=== PATIENT | female | born 1945 | race Asian ===

== ENCOUNTER → 2017-12-06 09:28 | Outpatient (CLI) | payer MEDICARE, OTHER, SELFPAY ==
--- NOTE | 2017-12-06 | DI.US.S_ITS ---
PROCEDURE: US RENAL COMPLETE INDICATIONS: CYST TECHNIQUE: Real-time scanning was performed of the kidneys and bladder, with image documentation. COMPARISON: [facility], CT, ABDOMEN W&WO CONTRAST, 08/11/2015, 11:01. [facility], US, RENAL COMPLETE, 04/02/2017, 10:43. [facility], US, RENAL COMPLETE, 10/17/2016, 13:07. [facility], US, RENAL COMPLETE, 02/21/2016, 11:40. FINDINGS: Kidneys: Kidneys are normal in size. Right kidney measures 11.1 cm long; left kidney measures 10.8 cm long. Right renal cortical thickness is 1.8 cm; left renal cortical thickness is 1.6 cm. Renal cortical echotexture is normal. No hydronephrosis or nephrolithiasis. No suspicious solid mass lesions. There are right renal cortical cysts, measuring 1.6 x 1.9 x 1.8 cm inferiorly at the posterior cortex of the right kidney, and measuring 10.9 x 10.7 x 2.3 cm at the medial cortex of the right kidney. No left renal cortical cysts are found, there is a 6 mm nonobstructive anterior inferior renal cortical calculus without associated renal collecting system dilatation focally Bladder: Pre-void bladder volume is 200 mL. Post-void residual is 0 mL. Pre-void images demonstrate no intraluminal masses or stones. On pre-void images, bilateral ureteral jets are noted with color Doppler interrogation. (Of note, ureteral jets may not be detectable in up to 25% of cases due to insufficient differences in specific gravity between ureteral and bladder urine). Miscellaneous: No free pelvic fluid. IMPRESSION: Right renal cortical cysts, largest of which is medial and measures up to 12.3 cm without internal hemorrhage or debris. 6 mm nonobstructive calculus anterior-inferior cortex of the right kidney. No hydronephrosis bilaterally. Dictated by: Jonah Florez M.D. on 12/06/2017 at 10:46 Approved by: Jonah Florez M.D. on 12/06/2017 at 10:55
== END ==
PROVIDERS: PCP Physician Assistant Medical; Visit Provider Urology
DX: N28.1 Cyst of kidney, acquired (principal)
CPT/HCPCS: 76770

== ENCOUNTER → 2018-06-10 11:51 | Outpatient (CLI) | payer MEDICARE, OTHER, SELFPAY ==
--- NOTE | 2018-06-10 | DI.US.S_ITS ---
PROCEDURE: US RENAL COMPLETE INDICATIONS: RENAL CYST TECHNIQUE: Real-time scanning was performed of the kidneys and bladder, with image documentation. COMPARISON: [facility], CR, XR LUMBAR SPINE 2 OR 3 VIEWS, 03/08/2017, 13:51. [facility], CT, ABDOMEN W&WO CONTRAST, 08/11/2015, 11:01. [facility], US, US RENAL COMPLETE, 12/06/2017, 10:02. FINDINGS: Kidneys: Kidneys are normal in size. Right kidney measures 13.7 cm long; left kidney measures 11.0 cm long. Right renal cortical thickness is 1.6 cm; left renal cortical thickness is 1.4 cm. Renal cortical echotexture is normal. No hydronephrosis. 12.3 cm right renal cyst redemonstrated and there is a smaller inferior posterior cortical cyst measuring 19 mm. 6 mm nonobstructing right renal stone. Bladder: Pre-void bladder volume is 161 mL. Post-void residual is not evaluated. Pre-void images demonstrate no intraluminal masses or stones. On pre-void images, neither ureteral jets are noted with color Doppler interrogation. (Of note, ureteral jets may not be detectable in up to 25% of cases due to insufficient differences in specific gravity between ureteral and bladder urine). Calcification adjacent to the posterior aspect of the bladder along the left side which could represent a ureteral stone or possibly a pelvic phlebolith. Miscellaneous: No free pelvic fluid. IMPRESSION: 1. No significant change in 12.3 cm right renal cyst. 2. 6 mm right renal nonobstructing calcification. 3. 9 mm calcification along the left lateral aspect of the posterior bladder which could represent either a phlebolith or possibly a ureteral stone. Recommend clinical correlation and if indicated CT KUB could be performed. Dictated by: Liban BERNAL Interpreted: Evie Colunga MD on 06/10/2018 at 13:44 Approved by: Evei Colunga M.D. on 06/10/2018 at 16:45
== END ==
PROVIDERS: PCP Physician Assistant Medical; Visit Provider Urology
DX: N28.1 Cyst of kidney, acquired (principal); N20.0 Calculus of kidney; N32.89 Other specified disorders of bladder
CPT/HCPCS: 76770

== ENCOUNTER → 2018-11-28 09:26 | Outpatient (CLI) | payer MEDICARE, OTHER, SELFPAY ==
--- NOTE | 2018-11-28 09:40 | DI.CT.S_ITS ---
PROCEDURE: CT ABDOMEN PELVIS WO CON INDICATIONS: RENAL CYST TECHNIQUE: Noncontrast 5 mm thick sections acquired from the diaphragms to the symphysis. 5 mm coronal and sagittal reformats were then performed. For radiation dose reduction, the following was used: automated exposure control, adjustment of mA and/or kV according to patient size. COMPARISON: [facility], , US RENAL COMPLETE, 06/10/2018, 12:28. FINDINGS: Image quality: Excellent. ABDOMEN: Lung bases: Lung bases are clear. Heart size is normal. Solid organs: Liver is normal in size. Gallbladder is difficult to visualize but is likely present and partially compressed by the large cyst projecting from the right renal cortex anteriorly and superiorly.. Pancreas is normal in contours. Spleen is normal in size. No adrenal nodules. Kidneys are asymmetric in size, larger on the right than the left, without hydronephrosis or nephrolithiasis but with a large right renal cortical exophytic cyst measuring up to 12.3 cm AP, 10.4 cm transverse and 11.9 cm craniocaudad. This represents the cystic structure seen by ultrasound 06/10/18. Several additional small renal cortical cysts appear present bilaterally, one of which contains a small amount of faint calcification at the lateral cortex of the junction of the middle and lower thirds of the right kidney. Peritoneum and bowel: Unenhanced bowel loops demonstrate normal wall thickness and caliber. No free fluid or air. Nodes and vessels: No retroperitoneal or mesenteric adenopathy by size criteria. Aorta and inferior vena cava are normal in caliber. Miscellaneous: No ventral hernias. PELVIS: Genitourinary: Bladder wall thickness is normal. Miscellaneous: No inguinal hernias or adenopathy. Bones: No suspicious bony lesions. No vertebral body compression fractures. IMPRESSION: Large right renal cortical exophytic cyst previously present, simple in appearance by CT scanning, and measuring up to 12.3 cm in maximal dimension. Several additional right renal cortical cysts are seen more inferiorly, one of which contains a slight amount of dystrophic calcification along its lateral border at the lower third of the right kidney. Dictated by: Joanh Florez M.D. on 11/28/2018 at 12:57 Approved by: Jonah Florez M.D. on 11/28/2018 at 13:01
== END ==
PROVIDERS: PCP Physician Assistant Medical; Visit Provider Urology
DX: N28.1 Cyst of kidney, acquired (principal)
CPT/HCPCS: 74176

== ENCOUNTER → 2018-12-25 12:28 | Outpatient (CLI) | payer MEDICARE, OTHER, SELFPAY ==
--- NOTE | 2018-12-25 12:34 | DI.CT.S_ITS ---
PROCEDURE: CT LUMBAR SPINE WO CON INDICATIONS: Intervertebral disc disorders with radiculopathy TECHNIQUE: Noncontrast 3 mm thick sections acquired from the T12 level to the sacrum. Sagittal and coronal reformats were constructed. For radiation dose reduction, the following was used: automated exposure control. COMPARISON: [facility], , L-SPINE WITHOUT CONTRAST, 02/03/2016, 10:10. FINDINGS: Image quality: Excellent. Bones: Posterior fixation and discectomies present at L5-S1. No findings to suggest hardware loosening or failure. Patient is status post L5-S1 laminectomy. There is normal bony alignment. No acute vertebral body compression fractures. No suspicious lytic or blastic bony lesions. Central spinal caliber is of normal overall caliber. No pars defects. T12-L1: Normal appearance. L1-L2: Mild disc desiccation. No canal stenosis. No foraminal stenosis. No neural foraminal narrowing. L2-L3: Mild disc bulge. Mild facet and ligamentum flavum hypertrophy. No canal stenosis. No neural foraminal narrowing. L3-L4: Mild disc bulge and disc desiccation and height loss. Moderate facet and ligamentum flavum hypertrophy. Moderate canal stenosis. No neural foraminal narrowing. L4-L5: Severe disc desiccation and height loss. Vacuum disc phenomenon. Severe facet and ligamentum flavum hypertrophy. Mild canal stenosis. No neural foraminal stenosis. L5-S1: Posterior fusion and discectomy. No canal stenosis. Moderate right foraminal stenosis. Mild left foraminal stenosis. Soft tissues: No retroperitoneal masses or hematomas. Visualized aorta is normal in caliber. There is a large low density cystic lesion within the upper pole of the right kidney which is incompletely characterized on this limited view. IMPRESSION: 1. Postoperative changes at L5-S1. No findings to suggest hardware failure or fracture. No abnormal fluid collections. 2. Moderate canal stenosis at L3-4 and mild canal stenosis at L4-5. 3. Moderate right neuroforaminal stenosis at L5-S1. 4. Large right renal cyst which is incompletely characterized on this limited view. Dictated by: Claire Walter M.D. on 12/25/2018 at 13:54 Approved by: Claire Walter M.D. on 12/25/2018 at 14:00
== END ==
PROVIDERS: PCP Physician Assistant Medical; Visit Provider Orthopaedic Surgery Orthopaedic Surgery of the Spine
DX: M51.16 Intervertebral disc disorders with radiculopathy, lumbar region (principal); Z98.1 Arthrodesis status; M48.061 Spinal stenosis, lumbar region without neurogenic claudication; M48.07 Spinal stenosis, lumbosacral region; Q61.01 Congenital single renal cyst
CPT/HCPCS: 72131

== ENCOUNTER → 2020-04-19 16:56 | Outpatient (CLI) | payer MEDICARE, OTHER, SELFPAY ==
--- NOTE | 2020-04-19 16:58 | DI.MG.S_ITS ---
BILATERAL DIGITAL SCREENING MAMMOGRAM 3D/2D WITH CAD: 04/19/2020 CLINICAL: Routine screening. Comparison is made to exams dated: 04/15/2019 mammogram and 03/18/2018 mammogram - outside location. The tissue of both breasts is heterogeneously dense. This may lower the sensitivity of mammography. Current study was also evaluated with a Computer Aided Detection (CAD) system. There is a possible developing calcification in the left breast at 5 o'clock anterior depth. No other significant masses, calcifications, or other findings are seen in either breast. IMPRESSION: INCOMPLETE: NEEDS ADDITIONAL IMAGING EVALUATION The possible developing calcification in the left breast is indeterminate. Additional views are recommended. This exam was interpreted at Station ID: [id number]. NOTE: For mammograms, a report in lay terms will be sent to the patient. Approximately 15% of breast malignancies will not be visualized mammographically. In the management of a palpable breast mass, a negative mammogram must not discourage biopsy of a clinically suspicious lesion. Electronically Signed By: Huang Mark M.D. [facility] [place]:04/20/2020 09:20:53 letter sent: Additional Imaging Needed ACR BI-RADS Category 0: Incomplete 3340F
== END ==
PROVIDERS: PCP Physician Assistant Medical; Referring Provider Physician Assistant Medical; Visit Provider Physician Assistant Medical
DX: Z12.31 Encounter for screening mammogram for malignant neoplasm of breast (principal)
CPT/HCPCS: 77063; 77067

== ENCOUNTER → 2020-05-13 14:47 | Outpatient (CLI) | payer MEDICARE, OTHER, SELFPAY ==
--- NOTE | 2020-05-13 | DI.MG.S_ITS ---
UNILATERAL LEFT DIGITAL DIAGNOSTIC MAMMOGRAM 3D/2D WITH ADDITIONAL VIEWS: 05/13/2020 CLINICAL: Additional evaluation requested from prior study. Comparison is made to exams dated: 04/19/2020 mammogram - [facility], 04/15/2019 mammogram, and 03/18/2018 mammogram - outside location. The tissue of left breast is heterogeneously dense. This may lower the sensitivity of mammography. The previously described possible developing calcifications in the left breast at 5 o'clock anterior depth is not reproduced and presumably represented pseudocalcification artifact. No other significant masses or calcifications are seen in the breast. IMPRESSION: BENIGN There is no mammographic evidence of malignancy. A 1 year screening mammogram is recommended. Findings and recommendations were conveyed to the patient during today's evaluation. This exam was interpreted at Station ID: [id number]. NOTE: For mammograms, a report in lay terms will be sent to the patient. Approximately 15% of breast malignancies will not be visualized mammographically. In the management of a palpable breast mass, a negative mammogram must not discourage biopsy of a clinically suspicious lesion. Electronically Signed By: Ted singh/:05/13/2020 15:29:41 letter sent: Normal Exam ACR BI-RADS Category 2: Benign Finding(s) 3342F
== END ==
PROVIDERS: PCP Physician Assistant Medical; Referring Provider Physician Assistant Medical; Visit Provider Physician Assistant Medical
DX: R92.8 Other abnormal and inconclusive findings on diagnostic imaging of breast (principal)
CPT/HCPCS: 77065; G0279

== ENCOUNTER → 2020-07-12 11:18 | Outpatient (CLI) | payer MEDICARE, OTHER, SELFPAY ==
[2020-07-12 13:00] LABS: COVID19 -Nasal RAPID Negative (Negative)
== END ==
PROVIDERS: PCP Physician Assistant Medical; Visit Provider Physician Assistant
DX: Z01.812 Encounter for preprocedural laboratory examination (principal); Z20.822 Contact with and (suspected) exposure to COVID-19
CPT/HCPCS: 87635; C9803

== ENCOUNTER 2021-01-17 07:23 | Emergency (ER) | payer MEDICARE, OTHER, SELFPAY ==
[2021-01-17] VITALS (10 sets, daily range): BP systolic 117–154; BP diastolic 75–87; PULSE 60–79; RESP 11–36; TEMP 37.1; O2SAT 92–100; BMI 18.8
--- NOTE | 2021-01-17 07:41 | ED.GENADULT ---
HPI - General Adult General Chief complaint: Shortness of Breath/Dyspnea Stated complaint: SOB, LOW ABD PAIN, HEADACHE Time Seen by Provider: 01/17/21 07:27 Source: patient Mode of arrival: Wheelchair Limitations: no limitations History of Present Illness HPI narrative: 75-year-old female who is here with her for evaluation of shortness of breath, abdominal pain and headache. There is somewhat of a by language barrier. Her is at bedside and is providing some of the HPI. It appears that the patient has had abdominal pain for several weeks/months however last evening the abdominal pain got worse and she developed shortness of breath and also headache. She has had her appendix removed. She does have a history of high blood pressure and high cholesterol. The abdominal pain that she is having is the same pain that she has been having for weeks/months but just worse. She denies chest pain. Has not tried anything for symptoms prior to arrival. Related Data Home Medications Medication Instructions Recorded Confirmed [STOOL SOFTENER] QDAY #0 07/19/16 brimonidine 0.2 % eye drops 1 drp OU BID #0 07/19/16 losartan 25 mg tablet 25 mg PO QDAY #0 07/19/16 Previous Rx's Medication Instructions Recorded oxycodone 5 mg tablet 5 mg PO Q4HP PRN #90 tab 08/01/16 hydroxyzine pamoate 25 mg capsule 25 - 50 mg PO Q4HP PRN #30 cap 08/03/16 (Vistaril) Allergies Allergy/AdvReac Type Severity Reaction Status Date / Time morphine [MORPHINE] Allergy Unknown RASH; Verified 01/17/21 09:09 ITCHING Review of Systems Constitutional Comments: No fevers Eyes Eyes: Reports system reviewed and no additional complaints, except as documented Cardiovascular Cardiovascular: Reports as per HPI Respiratory Respiratory: Reports as per HPI Gastrointestinal Gastrointestinal: Reports system reviewed and no additional complaints, except as documented and Reports abdominal pain Genitourinary Genitourinary: Reports system reviewed and no additional complaints, except as documented Musculoskeletal Musculoskeletal: Reports system reviewed and no additional complaints, except as documented Integumentary/Breasts Skin/Breast: Reports system reviewed and no additional complaints, except as documented Neurologic Neurologic: Reports system reviewed and no additional complaints, except as documented Endocrine Endocrine: Reports system reviewed and no additional complaints, except as documented Hematologic/Lymphatic On Anticoagulants: No Allergic/Immunologic Allergic/Immunologic: Reports system reviewed and no additional complaints, except as documented Patient History Medical History Hyperlipidemia Hypertension Surgical History Hx of appendectomy Social History Smoking Status: Never smoker Smoking Status: Never smoker alcohol intake frequency: 0-2 drinks per day Substance Use Type: does not use Exam Initial Vital Signs Initial Vital Signs: Vital Signs Temperature 98.8 F 01/17/21 07:32 Pulse Rate 79 01/17/21 07:32 Respiratory Rate 36 H 01/17/21 07:32 Blood Pressure 154/87 H 01/17/21 07:32 Pulse Oximetry 99 01/17/21 07:32 Const General: cooperative and other (Uncomfortable) HENMT Head: normal to inspection and normocephalic Eyes General: appearance normal, both eyes and all related structures Resp Effort & Inspection: not labored and tachypneic Auscultation: clear to auscultation bilaterally Cardio Rate: regular rate Rhythm: regular rhythm GI Inspection: normal to inspection and non-distended Palpation: No guarding and tender (Diffuse tenderness) Back/Spine/Pelvis Back: normal to inspection Skin General: no rashes or lesions noted Neuro General: patient alert, patient awake and moves all extremities Extrem General: normal to inspection and capillary refill normal Psych Appearance: grossly normal and well kempt Course Orders Ordered: ED Orders 01/17/21 07:35 Complete Blood Count AUTO DIFF Stat Comprehensive Metabolic Panel Stat Lactate (Lactic Acid) Stat Lipase Stat Troponin & CK Cardiac Panel Stat 01/17/21 07:39 EKG-12 Lead Stat 01/17/21 08:03 CT angio chest abdomen pelvis Stat Discontinued Medications Hydromorphone HCl (Hydromorphone 0.5 Mg Inj) 0.5 mg IV NOW ONE Stop: 01/17/21 08:01 Last Admin: 01/17/21 09:10 Dose: 0.5 mg Documented by: MENG Sodium Chloride (Normal Saline 0.9%) 1,000 mls @ 1,000 mls/hr IV BOLUS ONE Stop: 01/17/21 08:26 Last Infusion: 01/17/21 09:57 Dose: 0 mls/hr Documented by: Admin: 01/17/21 07:48 Dose: 1,000 mls/hr Documented by: KAUSHIK Vital Signs Vital signs: Vital Signs - 8 hr 01/17/21 07:32 01/17/21 08:26 01/17/21 08:30 Temperature 98.8 F Pulse Rate 79 71 64 Respiratory Rate 36 H 24 Blood Pressure 154/87 H 129/83 117/75 Pulse Oximetry 99 98 100 01/17/21 09:00 01/17/21 09:30 01/17/21 10:00 Temperature Pulse Rate 62 62 65 Respiratory Rate 24 11 L Blood Pressure 137/79 140/79 Pulse Oximetry 99 99 99 Medical Decision Making Lab Data Lab results reviewed: Yes I reviewed the patient's lab results. Result diagrams: 01/17/21 07:35 01/17/21 07:35 Labs: Lab Results 01/17/21 01/17/21 01/17/21 Range/Units 07:35 07:35 07:35 WBC 5.8 (4.5-11.0) X10^3/uL RBC 4.87 (4.0-5.2) X10^6/uL Hgb 15.3 (12.0-16.0) g/dL Hct 45.3 (36-46) % MCV 93.0 (80-100) fL MCH 31.4 (26-34) PG MCHC 33.8 (30-36) % RDW 13.0 (11.6-14.8) % Plt Count 279 (150-400) X10^3/uL Neut % (Auto) 79.9 H (50-75) % Lymph % (Auto) 14.1 L (25-40) % Luce % (Auto) 4.6 (3-14) % Eos % (Auto) 0.1 L (2-4) % Baso % (Auto) 1.3 (0-2) % Neut # (Auto) 4600 (5295-9118) /uL Lymph # (Auto) 800 L (4913-8084) /uL Luce # (Auto) 300 (0-900) /uL Eos # (Auto) 0 (0-450) /uL Baso # (Auto) 100 (0-100) /uL Sodium 138 (137-145) mmol/L Potassium 3.7 (3.4-5.1) mmol/L Chloride 102 (98-107) mmol/L Carbon Dioxide 25 (22-32) mmol/L BUN 15 (7-17) mg/dL Creatinine 0.71 (0.52-1.04) mg/dL Estimated GFR > 60.0 (>60) mL/min BUN/Creatinine Ratio 21.1 (6-22) Glucose 130 H (80-110) mg/dL Lactate 3.1 H (0.7-2.1) mmol/L Calcium 10.4 H (8.4-10.2) mg/dL Total Bilirubin 1.7 H (0.2-1.3) mg/dL AST 28 (14-36) IU/L ALT 24 (<35) IU/L Alkaline Phosphatase 48 (38-126) U/L Total Creatine Kinase (30-135) U/L CK-MB (CK-2) CK-MB (CK-2) Rel Index Troponin I (0.01-0.034) ng/mL Total Protein 7.6 (6.3-8.2) g/dL Albumin 4.8 (3.5-5.0) g/dL Globulin 2.8 (1.7-4.1) g/dL Albumin/Globulin Ratio 1.7 (1.0-2.8) Lipase 210 (23-300) U/L 01/17/21 01/17/21 Range/Units 07:35 09:48 WBC (4.5-11.0) X10^3/uL RBC (4.0-5.2) X10^6/uL Hgb (12.0-16.0) g/dL Hct (36-46) % MCV (80-100) fL MCH (26-34) PG MCHC (30-36) % RDW (11.6-14.8) % Plt Count (150-400) X10^3/uL Neut % (Auto) (50-75) % Lymph % (Auto) (25-40) % Luce % (Auto) (3-14) % Eos % (Auto) (2-4) % Baso % (Auto) (0-2) % Neut # (Auto) (4819-7493) /uL Lymph # (Auto) (4816-8379) /uL Luce # (Auto) (0-900) /uL Eos # (Auto) (0-450) /uL Baso # (Auto) (0-100) /uL Sodium (137-145) mmol/L Potassium (3.4-5.1) mmol/L Chloride (98-107) mmol/L Carbon Dioxide (22-32) mmol/L BUN (7-17) mg/dL Creatinine (0.52-1.04) mg/dL Estimated GFR (>60) mL/min BUN/Creatinine Ratio (6-22) Glucose (80-110) mg/dL Lactate 0.7 (0.7-2.1) mmol/L Calcium (8.4-10.2) mg/dL Total Bilirubin (0.2-1.3) mg/dL AST (14-36) IU/L ALT (<35) IU/L Alkaline Phosphatase (38-126) U/L Total Creatine Kinase 55 (30-135) U/L CK-MB (CK-2) TNP CK-MB (CK-2) Rel Index TNP Troponin I < 0.012 (0.01-0.034) ng/mL Total Protein (6.3-8.2) g/dL Albumin (3.5-5.0) g/dL Globulin (1.7-4.1) g/dL Albumin/Globulin Ratio (1.0-2.8) Lipase (23-300) U/L Imaging Data CT scan - abdomen/pelvis: Radiologist's Impression: [address] Scan ReportSigned Patient: Nohemi Brandon [facility]#: [id number]: 8Acct:[id number]/Sex: 75 / FDate of Service: 01/17/21Loc: EDAccession Number: [id number] Procedure: CT angio chest abdomen pelvis Ordering Provider: Fracisco Lopez D.O. PROCEDURE: CT ANGIO CHEST ABDOMEN PELVIS INDICATIONS: Chest pain, SOB, ABD pain TECHNIQUE: Precontrast 5 mm thick sections acquired from the lung apices to the iliac crests. After the administration of intravenous contrast, 2.5 mm thick sections again acquired from the lung apices to the iliac crests. Maximum intensity projection (MIP) oblique sagittal and coronal reformats were then acquired. For radiation dose reduction, the following was used: automated exposure control. COMPARISON: None. FINDINGS: Image quality: Excellent. Lungs and pleura: No acute air space opacities. No pleural effusions or pneumothorax. Central and peripheral airways are patent and normal in caliber. Mediastinum: Heart size is normal. No pericardial effusion. No mediastinal adenopathy by size criteria. Thoracic aorta and central pulmonary arteries are normal in size. Esophagus is normal in caliber. No hiatal hernia. Bones and chest wall: No suspicious bony lesions. No vertebral body compression fractures. No axillary or supraclavicular adenopathy by size criteria. Thyroid gland is normal. Solid organs: Liver: The liver has no mass or intrahepatic biliary ductal dilatation. The portal vein and hepatic veins are patent. Biliary: The gallbladder has no gallstones, pericholecystic fluid, gallbladder wall thickening, or surrounding inflammatory change. Pancreas: The pancreas has no mass or ductal dilatation. There is no surrounding inflammation. Spleen: Normal size. There are no masses. Adrenals: No hypertrophy or nodules. Kidneys: No obstructive calculus or hydronephrosis. No solid mass. No cystic mass. There is a very large renal cyst which measures 9.9 x 13.4 x 12.1 cm involving the right kidney. Peritoneum and bowel: The distal esophagus and stomach are normal. The small bowel has a normal caliber and appearance. The terminal ileum is normal. The large bowel has a normal caliber and appearance. The appendix is not definitively visualized; however there are no secondary CT findings to suggest acute appendicitis. Nodes and vessels: No retroperitoneal or mesenteric adenopathy by size criteria. Aorta and inferior vena cava are normal in size. Miscellaneous: No abdominal wall mass or hernia. PELVIS: Genitourinary: The bladder has no wall thickening or mass. No bladder calcifications. Miscellaneous: No inguinal hernias or adenopathy. Bones: Pedicular screw and taurus fixation of L5-S1. No vertebral body compression fractures. IMPRESSION 1. Very large right renal cyst measuring 9.9 x 13.4 x 12.1 cm. This could be aspirated under ultrasound guidance if the patient is feeling mass effect. 2. No acute abnormality of the abdomen or pelvis. 3. No aortic aneurysm or dissection Dictated by: Rubén Koroma M.D. on 01/17/2021 at 9:15 Approved by: Rubén Koroma M.D. on 01/17/2021 at 9:27 ECG Data Attestation: I personally reviewed and interpreted this ECG as follows: Interpretation: Sinus rhythm Ventricular rate is 69 Normal axis Normal QRS Normal QTC No ST T wave changes MDM Narrative Medical decision making narrative: CT scan of the chest abdomen pelvis does not show any signs of acute pathology. There is no signs of dissection. Her EKG is unremarkable. Her lactate improved with fluids and time here in the ER. There is no indication for surgical consultation. No indication for admission to the hospital. I suspect that her shortness of breath could very well be related to her abdominal pain. She has been followed by Gastroenterology. She has had a colonoscopy. She has an appointment with the dental equipment installer and servicer again in 2 weeks. Patient could be safely discharged home. She was given strict return precautions. She expressed understanding and agreement. Discharge Plan Departure Patient Disposition: Home Clinical Impression: Abdominal pain Instructions: DI for Abdominal Pain-Adult Activity Restrictions/Additional Instructions: Your workup here in the emergency department is very reassuring. I recommend that you continue all of your medications as directed. Recommend that you keep your appointment with your dental equipment installer and servicer at the end of this month. Return to the emergency department for any new or worsening symptoms Prescriptions: No Action brimonidine 0.2 % drops 1 drp OU BID Qty: 0 RF: 0 losartan 25 MG tablet 25 mg PO QDAY Qty: 0 RF: 0 [STOOL SOFTENER] QDAY Qty: 0 RF: 0 oxycodone 5 MG tablet 5 mg PO Q4HP PRNQty: 90 RF: 0 hydroxyzine pamoate [Vistaril] 25 MG capsule 25 - 50 mg PO Q4HP PRNQty: 30 RF: 0 Referrals: Sugar Trotter PA-C [Primary Care Provider] -
[2021-01-17 07:46] LABS: Add Manual Diff / Slide Review NO; Basophils Absolute Auto 100 /uL (0-100); Basophils Percent Auto 1.3 % (0-2); Eosinophils Absolute Auto 0 /uL (0-450); Eosinophils Percent Auto 0.1 % (2-4); Hematocrit 45.3 % (36-46); Hemoglobin 15.3 g/dL (12.0-16.0); Lymphocytes Absolute Auto 800 /uL (1100-4500); Lymphocytes Percent Auto 14.1 % (25-40); Mean Corpuscular HGB Conc 33.8 % (30-36); Mean Corpuscular Hemoglobin 31.4 PG (26-34); Monocytes Absolute Auto 300 /uL (0-900); Monocytes Percent Auto 4.6 % (3-14); Neutrophils Absolute Auto 4600 /uL (1500-7000); Neutrophils Percent Auto 79.9 % (50-75); Platelet Count 279 X10^3/uL (150-400); Red Blood Cell Count 4.87 X10^6/uL (4.0-5.2); White Blood Cell Count 5.8 X10^3/uL (4.5-11.0)
[2021-01-17] MEDS: SODIUM CHLORIDE 0.9% 1,000 ML 1000 ML IV (07:48)
[2021-01-17 07:54] LABS: Lactate (Lactic Acid) 3.1 mmol/L (0.7-2.1)
[2021-01-17 07:56] LABS: Alanine Aminotransferase 24 IU/L (<35); Albumin 4.8 g/dL (3.5-5.0); Albumin Globulin Ratio 1.7 (1.0-2.8); Alkaline Phosphatase 48 U/L (38-126); Aspartate Aminotransferase 28 IU/L (14-36); BUN Creatinine Ratio 21.1 (6-22); Bilirubin Total 1.7 mg/dL (0.2-1.3); Blood Urea Nitrogen 15 mg/dL (7-17); Calcium 10.4 mg/dL (8.4-10.2); Carbon Dioxide 25 mmol/L (22-32); Chloride 102 mmol/L (98-107); Estimated Glomerular Filt Rate > 60.0 mL/min (>60); Globulin 2.8 g/dL (1.7-4.1); Glucose 130 mg/dL (80-110); HEMOLYSIS < 15 (0-50); Lipase 210 U/L (23-300); Potassium 3.7 mmol/L (3.4-5.1); Sodium 138 mmol/L (137-145); Total Protein 7.6 g/dL (6.3-8.2)
--- NOTE | 2021-01-17 08:03 | DI.CT.S_ITS ---
PROCEDURE: CT ANGIO CHEST ABDOMEN PELVIS INDICATIONS: Chest pain, SOB, ABD pain TECHNIQUE: Precontrast 5 mm thick sections acquired from the lung apices to the iliac crests. After the administration of intravenous contrast, 2.5 mm thick sections again acquired from the lung apices to the iliac crests. Maximum intensity projection (MIP) oblique sagittal and coronal reformats were then acquired. For radiation dose reduction, the following was used: automated exposure control. COMPARISON: None. FINDINGS: Image quality: Excellent. Lungs and pleura: No acute air space opacities. No pleural effusions or pneumothorax. Central and peripheral airways are patent and normal in caliber. Mediastinum: Heart size is normal. No pericardial effusion. No mediastinal adenopathy by size criteria. Thoracic aorta and central pulmonary arteries are normal in size. Esophagus is normal in caliber. No hiatal hernia. Bones and chest wall: No suspicious bony lesions. No vertebral body compression fractures. No axillary or supraclavicular adenopathy by size criteria. Thyroid gland is normal. Solid organs: Liver: The liver has no mass or intrahepatic biliary ductal dilatation. The portal vein and hepatic veins are patent. Biliary: The gallbladder has no gallstones, pericholecystic fluid, gallbladder wall thickening, or surrounding inflammatory change. Pancreas: The pancreas has no mass or ductal dilatation. There is no surrounding inflammation. Spleen: Normal size. There are no masses. Adrenals: No hypertrophy or nodules. Kidneys: No obstructive calculus or hydronephrosis. No solid mass. No cystic mass. There is a very large renal cyst which measures 9.9 x 13.4 x 12.1 cm involving the right kidney. Peritoneum and bowel: The distal esophagus and stomach are normal. The small bowel has a normal caliber and appearance. The terminal ileum is normal. The large bowel has a normal caliber and appearance. The appendix is not definitively visualized; however there are no secondary CT findings to suggest acute appendicitis. Nodes and vessels: No retroperitoneal or mesenteric adenopathy by size criteria. Aorta and inferior vena cava are normal in size. Miscellaneous: No abdominal wall mass or hernia. PELVIS: Genitourinary: The bladder has no wall thickening or mass. No bladder calcifications. Miscellaneous: No inguinal hernias or adenopathy. Bones: Pedicular screw and taurus fixation of L5-S1. No vertebral body compression fractures. IMPRESSION 1. Very large right renal cyst measuring 9.9 x 13.4 x 12.1 cm. This could be aspirated under ultrasound guidance if the patient is feeling mass effect. 2. No acute abnormality of the abdomen or pelvis. 3. No aortic aneurysm or dissection Dictated by: Rubén Koroma M.D. on 01/17/2021 at 9:15 Approved by: Rubén Koroma M.D. on 01/17/2021 at 9:27
[2021-01-17 08:09] LABS: Creatine Kinase 55 U/L (30-135)
[2021-01-17 08:22] LABS: Troponin I < 0.012 ng/mL (0.01-0.034)
[2021-01-17] MEDS: HYDROMORPHONE 0.5 MG INJ IV (09:10)
[2021-01-17 09:38] LABS: Reflexed Lactate in 2 Hours Y
[2021-01-17 10:08] LABS: Lactate 2HR (Lactic Acid Rflx) 0.7 mmol/L (0.7-2.1)
== END 2021-01-17 11:18 | disposition home or self-care (01) ==
PROVIDERS: Emergency Provider Emergency Medicine; PCP Physician Assistant Medical
DX: R10.9 Unspecified abdominal pain (principal); R07.9 Chest pain, unspecified; R51.9 Headache, unspecified; R06.02 Shortness of breath
CPT/HCPCS: 36415; 71275; 74174; 80053; 82550; 83605; 83690; 84484; 85025; 93005; 93010; 96361; 96374; 99284; J1170; Q9967

== ENCOUNTER → 2023-05-08 14:56 | Outpatient (CLI) | payer MEDICARE, OTHER, SELFPAY ==
[2023-05-08 15:51] LABS: Add Manual Diff / Slide Review NO; Basophils Absolute Auto 0 /uL (0-100); Basophils Percent Auto 0.3 % (0-2); Eosinophils Absolute Auto 200 /uL (0-450); Eosinophils Percent Auto 1.9 % (2-4); Hematocrit 31.9 % (36-46); Hemoglobin 11.1 g/dL (12.0-16.0); Lymphocytes Absolute Auto 600 /uL (1100-4500); Lymphocytes Percent Auto 6.8 % (25-40); Mean Corpuscular HGB Conc 34.9 % (30-36); Mean Corpuscular Hemoglobin 31.9 PG (26-34); Mean Corpuscular Volume 91.4 fL (80-100); Monocytes Absolute Auto 600 /uL (0-900); Monocytes Percent Auto 6.9 % (3-14); Neutrophils Absolute Auto 7700 /uL (1500-7000); Neutrophils Percent Auto 84.1 % (50-75); Platelet Count 365 X10^3/uL (150-400); Red Blood Cell Count 3.49 X10^6/uL (4.0-5.2); Red Cell Distribution Width 12.8 % (11.6-14.8); White Blood Cell Count 9.1 X10^3/uL (4.5-11.0)
[2023-05-08 16:14] LABS: BUN Creatinine Ratio 20.5 (6-22); Blood Urea Nitrogen 16 mg/dL (7-17); Calcium 9.1 mg/dL (8.4-10.2); Carbon Dioxide 26 mmol/L (22-32); Chloride 102 mmol/L (98-107); Estimated Glomerular Filt Rate > 60 mL/min (>60); Glucose 132 mg/dL (80-110); HEMOLYSIS < 15 (0-50); Potassium 4.1 mmol/L (3.4-5.1); Sodium 136 mmol/L (137-145)
== END ==
PROVIDERS: PCP Physician Assistant Medical; Referring Provider Internal Medicine; Visit Provider Internal Medicine
DX: I10 Essential (primary) hypertension (principal); I95.1 Orthostatic hypotension
CPT/HCPCS: 36415; 80048; 85025